=== PATIENT | male | born 1975 | race African-American/Black ===

== ENCOUNTER → 2016-10-26 | Outpatient (CLI) | payer MEDICAID ==
[~2016-10-26] MED LIST: DARVOCET-N 1001 EACH PO; FERROUS SULFAT325 M2 PO; FLEXERIL10 MG PO; FOLIC ACID 1MG T1 MG PO; HYDROCODONE 7.51 TAB PO; HYDROCODONE1 TABLET PO; IBU-8800 MG PO; KEFLEX 500MG.500 MG PO; LEVOTHYROXINE0.05 MG PO; LORTAB 5/500 501 TAB PO; LORTAB 500 MG-71 TAB PO; NOMEDS *; PANTOPRAZOLE SO40 MG PO; PEN-VK500 MG PO; PERCOCET 500 MG1 TAB PO; PREDNISONE20 MG PO; SEPTRA DS 800 M1 TAB PO; SKELAXIN 800MG800 MG PO; SULFAMETHOXAZOL1 TA6 PO; TRAMADOL 50MG T50 MG PO; TYLENOL W/CODEI1 TA1 PO; ULTRAM 50 MG TA50 MG PO; VIBRAMYCIN 100100 MG PO; VICODIN 5/500 T1 TAB PO; VOLTAREN75 MG PO
[2016-10-26 16:19] LABS: HEMOGLOBIN 14.8 g/dL (14.1-18.0); LYMPH # 1.5 K/mm3 (0.7-4.5); LYMPH % 25.9 % (10-50)
[2016-10-26 17:48] LABS: BUN 11 mg/dL (7-18)
[2016-10-26 18:03] LABS: GFR (ESTIMATED) 107 ML/MIN (>60)
[2016-10-28 08:46] LABS: Vitamin D, 25-Hydroxy 24.2 ng/mL (30.0-100.0)
[2016-10-28 09:38] LABS: Folate (Folic Acid) >20.0 ng/mL (>3.0); Vitamin B12 395 pg/mL (211-946)
== END ==
LOC: LAB 16:06
PROVIDERS: Nurse Practitioner Family
DX: R53.83 Other fatigue (principal); D64.9 Anemia, unspecified; E03.9 Hypothyroidism, unspecified

== ENCOUNTER → 2016-11-12 | Outpatient (CLI) | payer MEDICAID ==
[2016-11-12 10:32] LABS: HEMOGLOBIN 15.5 g/dL (14.1-18.0); LYMPH # 2.7 K/mm3 (0.7-4.5); LYMPH % 35.6 % (10-50)
[2016-11-12 11:42] LABS: BUN 5 mg/dL (7-18)
[2016-11-12 11:47] LABS: GFR (ESTIMATED) 93 ML/MIN (>60)
[2016-11-13 08:41] LABS: HBsAg Screen Negative (Negative); Hep A Ab, IgM Negative (Negative); Hep B Core Ab, IgM Negative (Negative); Hep C Virus Ab 0.1 (0.0-0.9)
== END ==
LOC: LAB 10:07
PROVIDERS: Surgery
DX: R10.32 Left lower quadrant pain (principal); D64.9 Anemia, unspecified; K62.5 Hemorrhage of anus and rectum; Z01.812 Encounter for preprocedural laboratory examination

== ENCOUNTER → 2016-12-03 | Outpatient (CLI) | payer MEDICAID | LOC: LAB 15:54 | DX: D64.9 Anemia, unspecified (principal) ==

== ENCOUNTER → 2016-12-10 | Outpatient (CLI) | payer MEDICAID ==
--- NOTE | 2016-12-10 13:28 | RADIOLOGY REPORT PS360 ---
US RUQ-(ABD LTD)1ORGAN/QUAD/FU HISTORY: RUQ PAIN ORDERING PHYSICIAN: JOSE GUADALUPE POST PATIENT AGE: 41 years COMPARISON: None FINDINGS: PANCREAS:Unremarkable. No obvious mass or abnormal fluid collection. No ductal dilatation LIVER:No focal liver lesions demonstrated. Homogeneous echogenicity. No intrahepatic biliary ductal dilatation evident RIGHT KIDNEY:Unremarkable. Normal size and echogenicity. No hydronephrosis GALLBLADDER: Multiple stones and sludge is noted within the gallbladder. No gallbladder wall thickening or common bile duct is normal at 3 mm. No pericholecystic fluid. IMPRESSION: Cholelithiasis with gallbladder sludge
== END ==
LOC: RAD 09:21
DX: R10.11 Right upper quadrant pain (principal)

== ENCOUNTER → 2017-01-17 | Outpatient (CLI) | payer MEDICAID ==
--- NOTE | 2017-01-17 14:53 | RADIOLOGY REPORT PS360 ---
EXAM: CERVICAL SPINE 4 OR 5 VIEWS HISTORY: NECK PAIN ORDERING PHYSICIAN: JOSE GUADALUPE POST PATIENT AGE: 42 years COMPARISON: None FINDINGS: Normal alignment. No fracture or dislocation. No lytic or blastic change. There is slight reversal of cervical lordosis which may be due to patient positioning or muscle spasm. Degenerative disc disease is present at C5-C6 with small endplate osteophytes. Mild right foraminal narrowing at C5-6. IMPRESSION: Degenerative disc disease C5-C6 Straightening of lordosis which may be due to patient positioning or muscle spasm
== END ==
LOC: RAD 10:08
DX: M54.2 Cervicalgia (principal)

== ENCOUNTER 2017-01-28 09:02 | Emergency (ER) | payer MEDICAID ==
[~2017-01-28] VITALS: Ht 172.7 cm; Wt 70.3 kg
--- OUTSIDE RECORDS SUMMARY | 2017-01-28 09:13 | External Medical Summary Rpt | CCD ---
Author Author [employer] Organization [employer] Address Unknown Phone Unavailable Purpose Continuity of Care Document - through 2016
--- OUTSIDE RECORDS SUMMARY | 2017-01-28 09:13 | External Medical Summary Rpt | CCD ---
Demographics Preferred Language Azeri Marital Status Unknown Bahai Affiliation Unknown Race Unknown Ethnic Group Unknown Author Author , ROMY STANTON Address Unknown Phone [email or web address] Immunization Name Date Rout CVX Reac Dose Comm Prov Is Faci e tion ent ider Refu lity Give sed n Td 03-0 9 999 Hist H149 No H149 (joslyn 5-19 oric lt), 97 al Info adso rmat rbed ion - Sour ce Unsp ecif ied
--- OUTSIDE RECORDS SUMMARY | 2017-01-28 09:13 | External Medical Summary Rpt | CCD ---
Demographics Preferred Language Swedish Marital Status Unknown Yarsanism Affiliation Unknown Race Unknown Ethnic Group Unknown Author Author , ROMY STANTON Address Unknown Phone [email or web address] Immunization Name Date Rout CVX Reac Dose Comm Prov Is Faci e tion ent ider Refu lity Give sed n Td 03-0 9 999 Hist H149 No H149 (joslyn 5-19 oric lt), 97 al Info adso rmat rbed ion - Sour ce Unsp ecif ied
--- OUTSIDE RECORDS SUMMARY | 2017-01-28 09:13 | External Medical Summary Rpt | CCD ---
Author Author , ROMY STANTON Address Unknown Phone [email or web address] Purpose Continuity of Care Document - 11-13-2014 through 2016 Problems Code Diagnosis DOS Provider Status Abnormal Labs 820818 Abdominal Pain 517885 Follow-up 511785 Abnormal Lab 46 Fatigue D61.818 Other pancytopeni a D64.9 ANEMIA, UNSPECIFIED D64.9 Anemia, unspecified K29.70 GASTRITIS, UNSPECIFIED , WITHOUT BLEEDING K92.2 GASTROINTES TINAL HEMORRHAGE, UNSPECIFIED N39.0 URINARY TRACT INFECTION, SITE NOT SPECIFIED R10.13 Epigastric pain R63.4 Abnormal weight loss Allergies, Adverse Reactions, Alerts Type Miscellaneous Adverse Reaction to Substance Substance Reaction Severity RASH / HIVES Results Labs Lab Lab Date Result Refere Interp Status Commen Order Detail nces retati t Range on Hepatitis B virus susceptibility panel in Isolate by Genotype method (11-12-2016 10:07) Hepatit Negativ Negativ complet is A 017 e e ed virus 10:07 IgM Ab [Presen ce] in Serum by Immunoa ssay Hepatit Negativ Negativ complet is B 017 e e ed virus 10:07 core IgM Ab [Presen ce] in Serum by Immunoa ssay Hepatit Negativ Negativ complet is B 017 e e ed virus 10:07 surface Ag [Presen ce] in Serum by Immunoa ssay Hemoglobin A1c in Blood (10-26-2016 11:00) Hemoglo 5.1 % 0.0% Normal complet bin A1c 017 - ed in 11:00 7.0% Blood Hemoglobin.gastrointestinal [Presence] in Stool (10-20-2016 10:50) Hemoglo POSITIV NEG complet bin.gas 017 E ed trointe 10:50 stinal [Presen ce] in Stool --1st specime n Drugs identified in Urine by Screen method (10-20-2016 10:35) Ampheta NEGATIV <1000 complet mine 017 E ed [Presen 10:35 ce] in Urine by Screen method 11-Hydr NEGATIV <50 complet oxy 017 E ed delta-9 10:35 tetrahy drocann abinol [Presen ce] in Unspeci fied specime n Treponema pallidum IgG Ab [Presence] in Serum by Immunoassay (09-19-2015 08:00) Trepone NON-MILTON complet ma 016 CTIVE ed pallidu 08:00 m IgG Ab [Presen ce] in Serum by Immunoa ssay Treponema pallidum IgG Ab [Presence] in Serum by Immunoassay (09-19-2015 08:00) COLLECT VM complet OR 016 ed 08:00 ETHNICI B complet TY 016 ed 08:00 PURPOSE ROUTINE complet OF 016 ed EXAM 08:00 SPECIME BLOOD complet N 016 ed SOURCE 08:00 CHART [id number] complet NUMBER 016 ed 08:00 Trepone Pending complet ma 016 ed pallidu 08:00 m IgG Ab [Presen ce] in Serum by Immunoa ssay CHLAMYDIA AND GONORRHEA TESTING (11-13-2014 08:30) Chlamyd POSITIV complet ia 015 E ed trachom 08:30 atis rRNA [Presen ce] in Unspeci fied specime n by Probe & target amplifi cation method Neisser NEGATIV complet ia 015 E ed gonorrh 08:30 oeae rRNA [Presen ce] in Unspeci fied specime n by Probe & target amplifi cation method CHLAMYDIA AND GONORRHEA TESTING (11-13-2014 08:30) COLLECT PATIENT complet OR 015 /[id number] ed 08:30 ETHNICI BLACK, complet TY 015 NON-HIS ed 08:30 PANIC KIT complet EXPIRAT 015 016 ed ION 08:30 DATE SYMPTOM NO complet S 015 ed 08:30 REASON VOLUNTE complet FOR 015 ER/MEDI ed REQUEST 08:30 YARIEL PROBLEM SPECIME URINE complet N 015 ed SOURCE 08:30 PREGNAN NO complet T 015 ed 08:30 CHART NA complet NUMBER 015 ed 08:30 Chlamyd Pending complet ia 015 ed trachom 08:30 atis rRNA [Presen ce] in Unspeci fied specime n by Probe & target amplifi cation method Neisser Pending complet ia 015 ed gonorrh 08:30 oeae rRNA [Presen ce] in Unspeci fied specime n by Probe & target amplifi cation method
--- OUTSIDE RECORDS SUMMARY | 2017-01-28 09:13 | External Medical Summary Rpt | CCD ---
Author Author , ROMY STANTON Address Unknown Phone [email or web address] Purpose Continuity of Care Document - 11-13-2014 through 2016 Problems Code Diagnosis DOS Provider Status Abnormal Labs 285758 Abdominal Pain 057329 Follow-up 641753 Abnormal Lab 46 Fatigue D61.818 Other pancytopeni [...] complet N 016 ed SOURCE 08:00 CHART [id number] complet NUMBER 016 ed 08:00 Trepone Pending [...]
--- NOTE | 2017-01-28 09:15 | Emergency Room Report ---
History of Present Illness Time Seen by MD Knutson Presenting Problem in Triage Pt arrived:Wheelchair Presenting Problem:PT REPORTS PAIN JUST ABOVE UMBILICUS, STATES PAIN HAS BEEN GOING ON FOR 11 MONTHS BUT IS "WAY WORSE" SINCE WAKING UP THIS MORNING. 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 N Clinical Suspician of Infection? N Mental Status: 1 - Regular (Normal Baseline) Sepsis Risk:Low Sepsis Risk Have you (or family members/close friends) recently traveled outside the [place]? N If Yes, where/when: Have you had exposure to infectious disease within the past month? N TB? Other? Specify: RUQ abdominal pain x eleven months, patient of Dr. Arguello, with f/u with GI in [place], [place], scheduled for next week for this chronic syndrome and hx of cholelithiasis. States pain worse w/ food, now with increased pain and diminished appetite today. Moved bowels yesterday, no blood from above or below; no fever or urinary sx; no vomiting; no night sweats; denies liver or pancreatic issues. ALLERGIES Coded Allergies: sulfamethoxazole (From BACTRIM) (I-HIV 10/20/16) trimethoprim (From BACTRIM) (I-[facility] 10/20/16) Home Medications Reported Medications FOLIC ACID (Folic Acid) 1 MG PO DAILY Pantoprazole Sodium (Pantoprazole 40MG) 40 MG PO QHS Levothyroxine Sodium (Levothyroxine) 0.05 MG PO DAILY History Medical History General CAD? No Angina: No DC: No Hypertension? No Hyperlipidemia? No CHF? No DVT? No PE? No COPD? No Asthma? No Anemia? No GERD? No Gastric ulcers? No GI Bleed? No Hernia? No Thyroid Problems? No Hypothyroidism? No CVA? No Seizures? No Diabetes? No Renal Insuffiency? No End Stage Renal Disease? No UTI? No Stones? No BPH? No GB Disease: No Nephritic Syndrome? No Asplenia? No Hepatitis? No Sickle Cell Disease? No Arthritis? No Migraines? No Cataracts? No Glaucoma? No MRSA? Yes HIV? No TB? No Anxiety? No Depression? No Cancer? No Immunization Hx DT/Tetanus 11/15/08 Surgical Hx Previous Surgery?Y CYST REMOVED FROM FACE Social History Smoking Hx Smoker: Current Every Day Smoker Tobacco: Yes Type Cigarettes Packs/day < 1 Pack Alcohol Alcohol: Yes Review of Systems All Other Systems Reviewed and Negative Gastrointestinal see HPI Physical Exam Vital Signs Vital Signs Date Time Temp Pulse Resp B/P Pulse O2 O2 Flow FiO2 Ox Delivery Rate 01/28 1042 65 20 142/93 99 01/28 0936 20 01/28 0905 98.1 63 20 163/111 100 General Appearance normal appearance, WD/WN, no apparent distress Eye Exam - bilateral eye normal exam, bilateral eye PERRL, bilateral eye EOMI Neck normal inspection, non-tender, supple, full range of motion Respiratory Status Yes: trachea midline, chest symmetrical, non tender chest. No: respiratory distress, tender on palpation, use of accessory muscles, pain on inspiration, pain on expiration, productive cough, non productive cough. Lung Sounds bilateral: normal breath sounds, lungs clear. Cardiovascular normal exam, regular rate/rhythm, no peripheral edema, no gallop, no JVD, no murmur, no rub, normal peripheral pulses Gastrointestinal normal bowel sounds, normal exam, soft, no organomegaly, no pulsatile mass, no guarding, no rebound, tenderness (tender RUQ with deep palp) Strength 5 Upper Ext (L), 5 Upper Ext (R), 5 Lower Ext (L), 5 Lower Ext (R) Neurologic alert, normal exam, no motor/sensory deficits, oriented x 3 Glascow Coma Scale Glascow Coma Scale Response Value EYE response: 4 Spontaneously 4 MOTOR response: 6 OBEYS 6 VERBAL response: 5 Oriented & Converses 5 Total 15 Skin intact, normal color, warm/dry Medical Decision Making LABS/Meds/Orders Pt receiving controlled substance in ED? No Results/Orders Laboratory Tests 01/28/17 0921: Sodium 139, Potassium 3.8, Chloride 102, Carbon Dioxide 32, BUN 11, Creatinine 1.0, Estimated Creat Clear 97, Estimated GFR (MDRD) 82, Glucose 105, Calcium 9.3 , Total Bilirubin 0.6, AST 7 L, ALT 19, Alkaline Phosphatase 78, Total Protein 7.5, Albumin 4.1, Globulin 3.4 H, Albumin/Globulin Ratio 1.2, Amylase 62, Lipase 246, WBC 7.4, RBC 4.86, Hgb 15.9, Hct 48.5, MCV 99.8 H, RDW 13.0, Plt Count 204, MPV 9.6, Gran % 54.7, Gran # 4.1, Lymphocytes % 32.3, Monocytes % 9.1 , Eosinophils % 3.0, Basophils % 0.9, Lymphocytes # 2.4, Monocytes # 0.7, Eosinophils # 0.2, Basophils # 0.1, PUBS MCHC 32.7, MCH 32.6 H Current Medication Orders Sig/Anneliese Start time Last Medication Dose Route Stop Time Status Admin Diphenhydramine HCl 12.5 MG ONCE ONE 01/28 945 DC 01/28 IV 01/28 946 0938 Ketorolac 15 MG ONCE ONE 01/28 945 DC 01/28 Tromethamine IV 01/28 946 0936 Diphenhydramine HCl 0 .STK-MED ONE 01/28 935 DC .ROUTE Ketorolac 0 .STK-MED ONE 01/28 935 DC Tromethamine .ROUTE Ondansetron HCl 4 MG ONCE ONE 01/28 930 DC 01/28 IV 01/28 931 0925 Ondansetron HCl 0 .STK-MED ONE 01/28 925 DC .ROUTE Sodium Chloride 10 ML PRN PRN 01/28 915 AC IV 01/29 913 Orders Procedure Date/time Status US GALLBLADDER (ABD LTD) 01/28 921 Active IV SALINE LOCK 01/28 913 Active URINALYSIS/COMPLETE 01/28 913 Active LIPASE 01/28 913 Complete CBC WITH AUTO DIFF 01/28 913 Complete CHEM 12 PROFILE 01/28 913 Complete AMYLASE 01/28 913 Complete XRAY/CT/US XRAY/CT/US US Interpretation by reviewed by me, discussed w/radiologist US results gall bladder stones (nl CBD pos stones per tech) Progress ED Progress Notes 1 Date 01/28/17 Time 0931 Comment Patient states he is NOT allergic to Ibuprofen and NOT allergic to narcotics and has asked these be removed from his allergy list; I have requested that RN do so per this review with patient. He tolerates these medications. ED Progress Notes 2 Date 01/28/17 Time 1047 Comment NO pain at d/c; will f/u closely w/ Dr. Arguello. Departure Departure Time of Disposition 1039 Disposition DC Home or Self Care(routine) Clinical Impression Primary Impression: Cholelithiasis Qualifiers: Cholelithiasis location: gallbladder Cholecystitis presence: without cholecystitis Biliary obstruction: without biliary obstruction Qualified Code: K80.20 - Calculus of gallbladder without cholecystitis without obstruction Condition STABLE Referrals Saundra CARVER,Karson Lombardi MD,Regan Wiggins (Family) Patient Instructions Gallstones Additional Instructions Low fat diet, get in to see Dr. Arguello as soon as possible for reevaluation; keep appointment with GI MD next week. Rx Naproxen, Zofran. Discharge Counseling Counseled pt/family regarding diagnosis, test results, medications/RX, home care, follow up needs Prescriptions Current Visit Scripts NAPROXEN (NAPROXEN 500MG TAB) 500 MG PO BIDP PRN pain #20 TAB Ondansetron (Zofran 4MG Odt) 4 MG PO Q6HP PRN NAUSEA AND VOMITING #6 ODT ED Critical Care Critical Care No at 5910
--- OUTSIDE RECORDS SUMMARY | 2017-01-28 09:15 | External Medical Summary Rpt ---
Author Author [facility] Sandoval, [employer] Organization [facility] Address Unknown Phone Unavailable Results Ferritin [Mass/volume] in Serum or Plasma Observa Value Referen Units Interpr Notes Date tion ce etation Range Ferritin 8 - 388 ng/mL High No Sep 22 [Mass/vol informati 2017 ume] in on in 12:34 PM Serum or source Plasma data Hepatitis B virus susceptibility panel in Isolate by Genotype method Observa Value Referen Units Interpr Notes Date tion ce etation Range Hepatit Negativ Negativ No No No Sep 1 is A e e informa informa informa 2017 virus tion in tion in tion in 10:07 IgM Ab source source source AM [Presen data data data ce] in Serum by Immunoa ssay Hepatit Negativ Negativ No No No Sep 1 is B e e informa informa informa 2017 virus tion in tion in tion in 10:07 core source source source AM IgM Ab data data data [Presen ce] in Serum by Immunoa ssay Hepatitis 0.0 - 0.9 No No INFCE Sep 1 C virus informati informati Result 2017 Ab on in on in Units: 10:07 AM Signal/Cu source source s/co toff data data ratioNega [Ratio] tive: in Serum < or Plasma 0.8Indete by rminate: Immunoass 0.8 - ay 0.9Positi ve: > 0.9The CDC recommend s that a positive HCV antibody resultbe followed up with a HCV Nucleic Acid Amplifica tiontest (574992). Performed at: [address] [id number] Systems Security Analyst: Bryan Bhatti PhD, Phone: [phone] Hepatit Negativ Negativ No No No Sep 1 is B e e informa informa informa 2017 virus tion in tion in tion in 10:07 surface source source source AM Ag data data data [Presen ce] in Serum by Immunoa ssay Amylase [Enzymatic activity/volume] in Serum or Plasma Observa Value Referen Units Interpr Notes Date tion ce etation Range Amylase 25 - 115 U/L Normal No Sep 1 [Enzymati informati 2017 c on in 10:07 AM activity/ source volume] data in Serum or Plasma Comprehensive metabolic 2000 panel in Serum or Plasma Observa Value Referen Units Interpr Notes Date tion ce etation Range Albumin/G 1.1 - 1.8 No Normal No Sep 1 lobulin informati informati 2017 [Mass on in on in 10:07 AM ratio] in source source Serum or data data Plasma Albumin 3.4 - 5.0 gm/dL Normal No Sep 1 [Mass/vol informati 2017 ume] in on in 10:07 AM Serum or source Plasma data Alkaline 46 - 116 U/L Normal No Sep 1 phosphata informati 2017 se on in 10:07 AM [Enzymati source c data activity/ volume] in Serum or Plasma Bilirubin 0.2 - 1.0 mg/dL Normal No Sep 1 .total informati 2017 [Mass/vol on in 10:07 AM ume] in source Serum or data Plasma Urea 7 - 18 mg/dL Low No Sep 1 nitrogen informati 2017 [Mass/vol on in 10:07 AM ume] in source Serum or data Plasma Calcium 8.5 - mg/dL Normal No Sep 1 [Mass/vol 10.1 informati 2017 ume] in on in 10:07 AM Serum or source Plasma data Chloride 98 - 107 mmoL/L Normal No Sep 1 [Moles/vo informati 2017 lume] in on in 10:07 AM Serum or source Plasma data Carbon 21.0 - mmoL/L Normal No Sep 1 dioxide, 32.0 informati 2017 total on in 10:07 AM [Moles/vo source lume] in data Serum or Plasma Creatinin 0.70 - mg/dL Normal No Sep 1 e 1.30 informati 2017 [Mass/vol on in 10:07 AM ume] in source Serum or data Plasma Estimated >60 ML/MIN No REFERENCE Sep 1 informati RANGE: 2017 glomerula on in >60 10:07 AM r source ML/MIN/1. filtratio data 73 SQUARE n rate METERSIf (GF this patient is -A merican, then multiply theresult by 1.210. Globulin 1.3 - 3.2 gm/dL High No Sep 1 [Mass/vol informati 2017 ume] in on in 10:07 AM Serum source data Glucose 74 - 106 mg/dL Normal No Sep 1 [Mass/vol informati 2016 ume] in on in 10:07 AM Serum or source Plasma data Potassium 3.5 - 5.1 mmoL/L Normal No Sep 1 informati 2016 [Moles/vo on in 10:07 AM lume] in source Serum or data Plasma Sodium 136 - 145 mmoL/L Normal No Sep 1 [Moles/vo informati 2017 lume] in on in 10:07 AM Serum or source Plasma data Aspartate 15 - 37 U/L Low No Sep 1 informati 2016 aminotran on in 10:07 AM sferase source [Enzymati data c activity/ volume] in Serum or Plasma Alanine 12 - 78 U/L Normal No Sep 1 aminotran informati 2016 sferase on in 10:07 AM [Enzymati source c data activity/ volume] in Serum or Plasma Protein 6.4 - 8.2 gm/dL Normal No Sep 1 [Mass/vol informati 2016 ume] in on in 10:07 AM Serum or source Plasma data Lipase [Enzymatic activity/volume] in Serum or Plasma Observa Value Referen Units Interpr Notes Date tion ce etation Range Lipase 73 - 393 U/L Normal No Sep 1 [Enzymati informati 2016 c on in 10:07 AM activity/ source volume] data in Serum or Plasma INR in Blood by Coagulation assay Observa Value Referen Units Interpr Notes Date tion ce etation Range INR in 0.9 - 1.1 No Normal INDICATIO Sep 1 Blood by informati N 2017 Coagulati on in 10:07 AM on assay source INR data RANGETHER APY FOR DVT, PE, ATRIAL FIB; 2.0 - 3.0PROPHY LAXIS FOR VTETHERAP Y FOR MECHANICA L HEART 2.5 - 3.5VALVE; PREVENTIO N OF SYSTEMICE MBOLISM SECONDARY TO AMI Prothromb 9.4 - SECONDS Normal No Sep 1 in time 11.8 informati 2017 (PT) in on in 10:07 AM Platelet source poor data plasma by Coagulati on assay CBC W Auto Differential panel in Blood Observa Value Referen Units Interpr Notes Date tion ce etation Range Basophils 0 - 0.2 K/MM3 Normal No Sep 1 informati 2017 [#/volume on in 10:07 AM ] in source Blood by data Automated count Basophils 0.1 - 2.0 % Normal No Sep 1 /100 2016 leukocyte on in 10:07 AM s in source Blood by data Automated count Eosinophi 0.0 - 0.4 K/mm3 Normal No Sep 1 ls inform2016 [#/volume on in 10:07 AM ] in source Blood by data Automated count Eosinophi 0.1 - % Normal No Sep 1 ls/100 12.0 inform2016 leukocyte on in 10:07 AM s in source Blood by data Automated count Granulocy 1.3 - 8.0 K/mm3 Normal No Sep 1 breanna inform2016 [#/volume on in 10:07 AM ] in source Blood by data Automated count Granulocy 37.0 - % Normal No Sep 1 breanna/100 80.0 inform2016 leukocyte on in 10:07 AM s in source Blood by data Automated count Hematocri 42.0 - % Normal No Sep 1 t [Volume 52.0 2016 on in 10:07 AM Fraction] source of Blood data Hemoglobi 14.1 - g/dL Normal No Sep 1 n 18.0 2016 [Mass/vol on in 10:07 AM ume] in source Blood data Lymphocyt 0.7 - 4.5 K/mm3 Normal No Sep 1 es 2016 [#/volume on in 10:07 AM ] in source Unspecifi data ed specimen by Automated count Lymphocyt 10 - 50 % Normal No Sep 1 es 2016 [#/volume on in 10:07 AM ] in source Unspecifi data ed specimen by Automated count Erythrocy 27 - 31.2 pg High No Sep 1 te mean 2016 corpuscul on in 10:07 AM ar source hemoglobi data n [Entitic mass] Erythrocy 31.8 - g/dl Normal No Sep 1 te mean 35.4 inform2016 corpuscul on in 10:07 AM ar source hemoglobi data n concentra tion [Mass/vol ume] by Automated count Erythrocy 82.2 - fl Normal No Sep 1 te mean 97.8 inform2016 corpuscul on in 10:07 AM ar volume source [Entitic data volume] by Automated count Monocytes 0.1 - 1.0 K/mm3 Normal No Sep 1 informati 2017 [#/volume on in 10:07 AM ] in source Blood by data Automated count Monocytes 1.7 - 9.3 % Normal No Sep 1 /100 informati 2017 leukocyte on in 10:07 AM s in source Blood by data Automated count Platelet 7.4 - fl Normal No Sep 1 mean 10.4 informati 2016 volume on in 10:07 AM [Entitic source volume] data in Blood by Automated count Platelets 142 - 424 K/mm3 Normal No Sep 1 informati 2016 [#/volume on in 10:07 AM ] in source Blood data Erythrocy 4.6 - 6.2 M/mm3 Normal No Sep 1 breanna informati 2016 [#/volume on in 10:07 AM ] in source Amniotic data fluid Erythrocy 11.5 - % Normal No Sep 1 te 17.5 informati 2016 distribut on in 10:07 AM ion width source [Entitic data volume] by Automated count Leukocyte 4.8 - K/MM3 Normal No Sep 1 s 10.8 informati 2016 [#/volume on in 10:07 AM ] in source Blood data Comprehensive metabolic 2000 panel in Serum or Plasma Observa Value Referen Units Interpr Notes Date tion ce etation Range Albumin/G 1.1 - 1.8 No Normal No Oct 26 lobulin informati informati 2016 [Mass on in on in 11:00 AM ratio] in source source Serum or data data Plasma Albumin 3.4 - 5.0 gm/dL Normal No Oct 26 [Mass/vol informati 2016 ume] in on in 11:00 AM Serum or source Plasma data Alkaline 46 - 116 U/L Normal No Oct 26 phosphata informati 2016 se on in 11:00 AM [Enzymati source c data activity/ volume] in Serum or Plasma Bilirubin 0.2 - 1.0 mg/dL Normal No Oct 26 .total informati 2016 [Mass/vol on in 11:00 AM ume] in source Serum or data Plasma Urea 7 - 18 mg/dL Normal No Oct 26 nitrogen informati 2016 [Mass/vol on in 11:00 AM ume] in source Serum or data Plasma Calcium 8.5 - mg/dL Normal No Oct 26 [Mass/vol 10.1 informati 2016 ume] in on in 11:00 AM Serum or source Plasma data Chloride 98 - 107 mmoL/L Normal No Oct 26 [Moles/vo informati 2016 lume] in on in 11:00 AM Serum or source Plasma data Carbon 21.0 - mmoL/L Normal No Oct 26 dioxide, 32.0 informati 2016 total on in 11:00 AM [Moles/vo source lume] in data Serum or Plasma Creatinin 0.70 - mg/dL Normal No Oct 26 e 1.30 informati 2017 [Mass/vol on in 11:00 AM ume] in source Serum or data Plasma Estimated >60 ML/MIN No REFERENCE Oct 26 informati RANGE: 2017 glomerula on in >60 11:00 AM r source ML/MIN/1. filtratio data 73 SQUARE n rate METERSIf (GF this patient is -A merican, then multiply theresult by 1.210. Globulin 1.3 - 3.2 gm/dL Normal No Oct 26 [Mass/vol informati 2016 ume] in on in 11:00 AM Serum source data Glucose 74 - 106 mg/dL Normal No Oct 26 [Mass/vol informati 2016 ume] in on in 11:00 AM Serum or source Plasma data Potassium 3.5 - 5.1 mmoL/L Normal No Oct 26 inform2016 [Moles/vo on in 11:00 AM lume] in source Serum or data Plasma Sodium 136 - 145 mmoL/L Normal No Oct 26 [Moles/vo informati 2016 lume] in on in 11:00 AM Serum or source Plasma data Aspartate 15 - 37 U/L Normal No Oct 262016 aminotran on in 11:00 AM sferase source [Enzymati data c activity/ volume] in Serum or Plasma Alanine 12 - 78 U/L Normal No Oct 26 aminotran 2016 sferase on in 11:00 AM [Enzymati source c data activity/ volume] in Serum or Plasma Protein 6.4 - 8.2 gm/dL Normal No Oct 26 [Mass/vol informati 2016 ume] in on in 11:00 AM Serum or source Plasma data Thyroxine (T4) free [Mass/volume] in Serum or Plasma Observa Value Referen Units Interpr Notes Date tion ce etation Range Thyroxine 0.76 - ng/dL Normal No Oct 26 (T4) 1.46 informati 2016 free on in 11:00 AM [Mass/vol source ume] in data Serum or Plasma Lipid 1996 panel in Serum or Plasma Observa Value Referen Units Interpr Notes Date tion ce etation Range Cholester < 200 mg/dL No No Oct 26 ol informati inform2016 [Moles/vo on in on in 11:00 AM lume] in source source Unspecifi data data ed specimen Cholester 40 - 60 MG/DL High No Oct 26 ol in HDL 2016 on in 11:00 AM [Mass/vol source ume] in data Serum or Plasma Cholester 0 - 130 mg/dL Normal No Oct 26 ol in LDL 2016 on in 11:00 AM [Mass/vol source ume] in data Serum or Plasma by calculati on Triglycer 30 - 200 mg/dL Normal No Oct 26 justin 2016 [Moles/vo on in 11:00 AM lume] in source Serum or data Plasma Cholester 0 - 40 No Normal No Oct 26 ol in 2016 VLDL on in on in 11:00 AM [Mass/vol source source ume] in data data Serum or Plasma Thyrotropin [Units/volume] in Serum or Plasma Observa Value Referen Units Interpr Notes Date tion ce etation Range Thyrotrop 0.358 - uIU/ml High No Oct 26 in 3.740 2016 [Units/vo on in 11:00 AM lume] in source Serum or data Plasma Hemoglobin A1c in Blood Observa Value Referen Units Interpr Notes tion ce etation Range Hemoglo 5.1 0.0 - % Normal < 6% Oct 26 bin A1c 7.0 [facility]PRADEEP [facility]00 Blood LEVEL< AM 7% CONTROL LED DIABETI C LEVEL> 8% POORLY CONTROL LED DIABETI C LEVEL CBC W Auto Differential panel in Blood Observa Value Referen Units Interpr Notes Date ti ce etation Range Basophils 0 - 0.2 K/MM3 Normal No Oct 262016 [#/volume on in 11:00 AM ] in source Blood by data Automated count Basophils 0.1 - 2.0 % Normal No Oct 26 /100 2016 leukocyte on in 11:00 AM s in source Blood by data Automated count Eosinophi 0.0 - 0.4 K/mm3 Normal No Oct 26 ls 2016 [#/volume on in 11:00 AM ] in source Blood by data Automated count Eosinophi 0.1 - % Normal No Oct 26 ls/100 12.0 2016 leukocyte on in 11:00 AM s in source Blood by data Automated count Granulocy 1.3 - 8.0 K/mm3 Normal No Oct 15 breanna inform2016 [#/volume on in 11:00 AM ] in source Blood by data Automated count Granulocy 37.0 - % Normal No Oct 15 breanna/100 80.0 inform2016 leukocyte on in 11:00 AM s in source Blood by data Automated count Hematocri 42.0 - % Normal No Oct 26 t [Volume 52.0 ati 2016 on in 11:00 AM Fraction] source of Blood data Hemoglobi 14.1 - g/dL Normal No Oct 26 n 18.0 informati 2016 [Mass/vol on in 11:00 AM ume] in source Blood data Lymphocyt 0.7 - 4.5 K/mm3 Normal No Oct 26 es inform2016 [#/volume on in 11:00 AM ] in source Unspecifi data ed specimen by Automated count Lymphocyt 10 - 50 % Normal No Oct 26 es inform2016 [#/volume on in 11:00 AM ] in source Unspecifi data ed specimen by Automated count Erythrocy 27 - 31.2 pg High No Oct 26 te mean 2016 corpuscul on in 11:00 AM ar source hemoglobi data n [Entitic mass] Erythrocy 31.8 - g/dl Normal No Oct 26 te mean 35.4 inform2016 corpuscul on in 11:00 AM ar source hemoglobi data n concentra tion [Mass/vol ume] by Automated count Erythrocy 82.2 - fl High No Oct 26 te mean 97.8 inform2016 corpuscul on in 11:00 AM ar volume source [Entitic data volume] by Automated count Monocytes 0.1 - 1.0 K/mm3 Normal No Oct 262016 [#/volume on in 11:00 AM ] in source Blood by data Automated count Monocytes 1.7 - 9.3 % Normal No Oct 26 /100 inform2016 leukocyte on in 11:00 AM s in source Blood by data Automated count Platelet 7.4 - fl High No Oct 26 mean 10.4 inform2016 volume on in 11:00 AM [Entitic source volume] data in Blood by Automated count Platelets 142 - 424 K/mm3 Normal No Oct 26 inform2016 [#/volume on in 11:00 AM ] in source Blood data Erythrocy 4.6 - 6.2 M/mm3 Low No Oct 26 breanna informati 2016 [#/volume on in 11:00 AM ] in source Amniotic data fluid Erythrocy 11.5 - % Normal No Oct 26 te 17.5 informati 2016 distribut on in 11:00 AM ion width source [Entitic data volume] by Automated count Leukocyte 4.8 - K/MM3 Normal No Oct 26 s 10.8 informati 2016 [#/volume on in 11:00 AM ] in source Blood data Hemoglobin.gastrointestinal [Presence] in Stool Observa Value Referen Units Interpr Notes Date tion ce etation Range Hemoglo POSITIV NEG No No No Oct 20 bin.gas E informa informa informa 2017 trointe tion in tion in tion in 10:50 stinal source source source AM [Presen data data data ce] in Stool --1st specime n Comprehensive metabolic 2000 panel in Serum or Plasma Observa Value Referen Units Interpr Notes Date tion ce etation Range Albumin/G 1.1 - 1.8 No Normal No Oct 20 lobulin informati informati 2016 [Mass on in on in 10:35 AM ratio] in source source Serum or data data Plasma Albumin 3.4 - 5.0 gm/dL Normal No Oct 20 [Mass/vol informati 2016 ume] in on in 10:35 AM Serum or source Plasma data Alkaline 46 - 116 U/L Normal No Oct 20 phosphata 2016 se on in 10:35 AM [Enzymati source c data activity/ volume] in Serum or Plasma Bilirubin 0.2 - 1.0 mg/dL Normal No Oct 20 .total informati 2016 [Mass/vol on in 10:35 AM ume] in source Serum or data Plasma Urea 7 - 18 mg/dL Normal No Oct 20 nitrogen informati 2016 [Mass/vol on in 10:35 AM ume] in source Serum or data Plasma Calcium 8.5 - mg/dL Normal No Oct 20 [Mass/vol 10.1 informati 2016 ume] in on in 10:35 AM Serum or source Plasma data Chloride 98 - 107 mmoL/L Normal No Oct 20 [Moles/vo informati 2016 lume] in on in 10:35 AM Serum or source Plasma data Carbon 21.0 - mmoL/L Normal No Oct 20 dioxide, 32.0 informati 2016 total on in 10:35 AM [Moles/vo source lume] in data Serum or Plasma Creatinin 0.70 - mg/dL Normal No Oct 20 e 1.30 informati 2016 [Mass/vol on in 10:35 AM ume] in source Serum or data Plasma Creatinin 50 - 200 ML/MIN Normal No Oct 20 e renal ati 2017 clearance on in 10:35 AM source predicted data by Cockcroft -Gault formula Estimated >60 ML/MIN No REFERENCE Oct 20 informati RANGE: 2017 glomerula on in >60 10:35 AM r source ML/MIN/1. filtratio data 73 SQUARE n rate METERSIf (GF this patient is -A merican, then multiply theresult by 1.210. Globulin 1.3 - 3.2 gm/dL High No Oct 20 [Mass/vol informati 2016 ume] in on in 10:35 AM Serum source data Glucose 74 - 106 mg/dL Normal No Oct 20 [Mass/vol informati 2016 ume] in on in 10:35 AM Serum or source Plasma data Potassium 3.5 - 5.1 mmoL/L Normal No Oct 202016 [Moles/vo on in 10:35 AM lume] in source Serum or data Plasma Sodium 136 - 145 mmoL/L Normal No Oct 20 [Moles/vo informati 2016 lume] in on in 10:35 AM Serum or source Plasma data Aspartate 15 - 37 U/L Low No Oct 202016 aminotran on in 10:35 AM sferase source [Enzymati data c activity/ volume] in Serum or Plasma Alanine 12 - 78 U/L Normal No Oct 20 aminotran 2016 sferase on in 10:35 AM [Enzymati source c data activity/ volume] in Serum or Plasma Protein 6.4 - 8.2 gm/dL Normal No Oct 20 [Mass/vol informati 2016 ume] in on in 10:35 AM Serum or source Plasma data Drugs identified in Urine by Screen method Observa Value Referen Units Interpr Notes Date tion ce etation Range Positive urine drug screen samples are stored for 7 days. Contact the Lab if confirmation of positives is needed. Ampheta NEGATIV <1000 ng/mL No No Oct 20 mine E informa informa 2016 [Presen tion in tion in 10:35 ce] in source source AM Urine data data by Screen method Barbitura <200 ng/mL No No Oct 20 breanna informati informati 2016 [Mass/vol on in on in 10:35 AM ume] in source source Urine by data data Screen method Benzodiaz 200 ng/mL ng/mL No No Oct 20 epines informati ati 2016 [Mass/vol on in on in 10:35 AM ume] in source source Serum or data data Plasma by Screen method Cocaine <300 ng/g No No Oct 20 [Mass/vol informati informati 2016 ume] in on in on in 10:35 AM Unspecifi source source ed data data specimen Methadone <300 ng/mL No No Oct 20 informati informati 2016 [Mass/vol on in on in 10:35 AM ume] in source source Unspecifi data data ed specimen Opiates <300 ng/mL No No Oct 20 [Mass/vol informati informati 2016 ume] in on in on in 10:35 AM Unspecifi source source ed data data specimen Phencycli <25 ng/mL No No Oct 20 dine ati ati 2016 [Mass/vol on in on in 10:35 AM ume] in source source Unspecifi data data ed specimen 11-Hydr NEGATIV <50 ng/mL No No Oct 20 oxy E informa informa 2017 delta-9 tion in tion in 10:35 source source AM tetrahy data data drocann abinol [Presen ce] in Unspeci fied specime n CBC W Auto Differential panel in Blood Observa Value Referen Units Interpr Notes Date tion ce etation Range Basophils 0 - 0.2 K/MM3 Normal No Oct 202016 [#/volume on in 10:35 AM ] in source Blood by data Automated count Basophils 0.1 - 2.0 % Normal No Oct 202016 leukocyte on in 10:35 AM s in source Blood by data Automated count Eosinophi 0.0 - 0.4 K/mm3 Normal No Oct 20 ls ati 2016 [#/volume on in 10:35 AM ] in source Blood by data Automated count Eosinophi 0.1 - % Normal No Oct 20 ls/100 12.0 2016 leukocyte on in 10:35 AM s in source Blood by data Automated count Granulocy 1.3 - 8.0 K/mm3 Normal No Oct 20 breanna informati 2016 [#/volume on in 10:35 AM ] in source Blood by data Automated count Granulocy 37.0 - % Normal No Oct 20 breanna/100 80.0 2016 leukocyte on in 10:35 AM s in source Blood by data Automated count Hematocri 42.0 - % Normal No Oct 20 t [Volume 52.0 2016 on in 10:35 AM Fraction] source of Blood data Hemoglobi 14.1 - g/dL Normal No Oct 20 n 18.0 inform2016 [Mass/vol on in 10:35 AM ume] in source Blood data Lymphocyt 0.7 - 4.5 K/mm3 Normal No Oct 20 es inform2016 [#/volume on in 10:35 AM ] in source Unspecifi data ed specimen by Automated count Lymphocyt 10 - 50 % Normal No Oct 20 es 2016 [#/volume on in 10:35 AM ] in source Unspecifi data ed specimen by Automated count Erythrocy 27 - 31.2 pg High No Oct 20 te mean 2016 corpuscul on in 10:35 AM ar source hemoglobi data n [Entitic mass] Erythrocy 31.8 - g/dl Normal No Oct 20 te mean 35.4 2016 corpuscul on in 10:35 AM ar source hemoglobi data n concentra tion [Mass/vol ume] by Automated count Erythrocy 82.2 - fl High No Oct 20 te mean 97.8 inform2016 corpuscul on in 10:35 AM ar volume source [Entitic data volume] by Automated count Monocytes 0.1 - 1.0 K/mm3 Normal No Oct 202016 [#/volume on in 10:35 AM ] in source Blood by data Automated count Monocytes 1.7 - 9.3 % Normal No Oct 20 / inform2016 leukocyte on in 10:35 AM s in source Blood by data Automated count Platelet 7.4 - fl Normal No Oct 20 mean 10.4 2016 volume on in 10:35 AM [Entitic source volume] data in Blood by Automated count Platelets 142 - 424 K/mm3 No No Oct 20 informati informati 2016 [#/volume on in on in 10:35 AM ] in source source Blood data data Erythrocy 4.6 - 6.2 M/mm3 Low No Oct 20 breanna 2016 [#/volume on in 10:35 AM ] in source Amniotic data fluid Erythrocy 11.5 - % Normal No Oct 20 te 17.5 2016 distribut on in 10:35 AM ion width source [Entitic data volume] by Automated count Leukocyte 4.8 - K/MM3 Normal No Oct 20 s 10.8 inform2016 [#/volume on in 10:35 AM ] in source Blood data Treponema pallidum IgG Ab [Presence] in Serum by Immunoassay Observa Value Referen Units Interpr Notes Date tion ce etation Range COLLECT VM No No No No Sep 18 OR informa informa informa informa 2016 tion in tion in tion in tion in 8:00 AM source source source source data data data data ETHNICI B No No No No Sep 18 TY informa informa informa informa 2016 tion in tion in tion in tion in 8:00 AM source source source source data data data data PURPOSE ROUTINE No No No No Sep 18 OF informa informa informa informa 2016 EXAM tion in tion in tion in tion in 8:00 AM source source source source data data data data SPECIME BLOOD No No No No Sep 18 N informa informa informa informa 2016 SOURCE tion in tion in tion in tion in 8:00 AM source source source source data data data data CHART [id number] No No No No Sep 18 NUMBER informa informa informa informa 2016 tion in tion in tion in tion in 8:00 AM source source source source data data data data Trepone NON-MILTON No No No METHOD Sep [address] informa informa informa OF 2016 pallidu tion in tion in tion in ANALYSI 8:00 AM m IgG source source source S: Ab data data data EIANORM [Presen AL ce] in RANGE: Serum NON-MILTON by CTIVE\. Immunoa br\This ssay report contain s patient informa tion that must be protect ed in accorda nce with the Health Insuran ce Portabi lity and Account ability Act. Treponema pallidum IgG Ab [Presence] in Serum by Immunoassay Observa Value Referen Units Interpr Notes Date tion ce etation Range COLLECT VM No No No No Sep 18 OR informa informa informa informa 2016 tion in tion in tion in tion in 8:00 AM source source source source data data data data ETHNICI B No No No No Sep 18 TY informa informa informa informa 2016 tion in tion in tion in tion in 8:00 AM source source source source data data data data PURPOSE ROUTINE No No No No Sep 18 OF informa informa informa informa 2016 EXAM tion in tion in tion in tion in 8:00 AM source source source source data data data data SPECIME BLOOD No No No No Sep 18 N informa informa informa informa 2016 SOURCE tion in tion in tion in tion in 8:00 AM source source source source data data data data CHART [id number] No No No No Sep 18 NUMBER informa informa informa informa 2016 tion in tion in tion in tion in 8:00 AM source source source source data data data data Trepone Pending No No No \.br\Sep 18 ma informa informa informa is 2016 pallidu tion in tion in tion in report 8:00 AM m IgG source source source contain Ab data data data s [Presen patient ce] in Serum informa by tion Immunoa that ssay must be protect ed in accorda nce with the Health Insuran ce Portabi lity and Account ability Act. CHLAMYDIA AND GONORRHEA TESTING Observa Value Referen Units Interpr Notes Date tion ce etation Range COLLECT PATIENT No No No No Sep 2 OR /[id number] informa informa informa informa 2015 tion in tion in tion in tion in 8:30 AM source source source source data data data data ETHNICI BLACK, No No No No Sep 2 TY NON-HIS informa informa informa informa 2015 PANIC tion in tion in tion in tion in 8:30 AM source source source source data data data data KIT -31-2 No No No No Sep 2 EXPIRAT 016 informa informa informa informa 2015 ION tion in tion in tion in tion in 8:30 AM DATE source source source source data data data data SYMPTOM NO No No No No Sep 2 S informa informa informa informa 2015 tion in tion in tion in tion in 8:30 AM source source source source data data data data REASON VOLUNTE No No No No Sep 2 FOR ER/MEDI informa informa informa informa 2015 REQUEST YARIEL tion in tion in tion in tion in 8:30 AM PROBLEM source source source source data data data data SPECIME URINE No No No No Sep 2 N informa informa informa informa 2015 SOURCE tion in tion in tion in tion in 8:30 AM source source source source data data data data PREGNAN NO No No No No Sep 2 T informa informa informa informa 2015 tion in tion in tion in tion in 8:30 AM source source source source data data data data CHART NA No No No No Sep 2 NUMBER informa informa informa informa 2015 tion in tion in tion in tion in 8:30 AM source source source source data data data data Chlamyd POSITIV No No No NEGATIV Sep 2 ia E informa informa informa E 2015 trachom tion in tion in tion in RESULT= 8:30 AM atis source source source WITHIN rRNA data data data NORMAL [Presen ce] in LIMITSP Unspeci OSITIVE fied specime RESULT= n by Probe & ABNORMA target LEQUIVO YARIEL amplifi RESULT= cation method INDETER MINATEU NSATISF ACTORY RESULT= INVALID Neisser NEGATIV No No No NEGATIV Sep 2 ia E informa informa informa E 2015 gonorrh tion in tion in tion in RESULT= 8:30 AM oeae source source source WITHIN rRNA data data data NORMAL [Presen ce] in LIMITSP Unspeci OSITIVE fied specime RESULT= n by Probe & ABNORMA target LEQUIVO YARIEL amplifi RESULT= cation method INDETER MINATEU NSATISF ACTORY RESULT= INVALID THE APTIMA COMBO 2 ASSAY IS NOT INTENDE D FOR THE EVALUAT ION OF SUSPECT EDSEXUA L ABUSE OR FOR OTHER MEDICO- LEGAL INDICAT IONS. FOR THOSE PATIENT S FORWHOM A FALSE POSITIV E RESULT MAY HAVE ADVERSE PSYCHO- SOCIAL IMPACT, THE CDCRECO MMENDS RETESTI NG.\.br \This report contain s patient informa tion that must be protect ed in accorda nce with the Health Insuran ce Portabi lity and Account ability Act. CHLAMYDIA AND GONORRHEA TESTING Observa Value Referen Units Interpr Notes Date tion ce etation Range COLLECT PATIENT No No No No Sep 2 OR /[id number] informa informa informa informa 2015 tion in tion in tion in tion in 8:30 AM source source source source data data data data ETHNICI BLACK, No No No No Sep 2 TY NON-HIS informa informa informa informa 2015 PANIC tion in tion in tion in tion in 8:30 AM source source source source data data data data KIT 01-31-2 No No No No Sep 2 EXPIRAT 016 informa informa informa informa 2015 ION tion in tion in tion in tion in 8:30 AM DATE source source source source data data data data SYMPTOM NO No No No No Sep 2 S informa informa informa informa 2015 tion in tion in tion in tion in 8:30 AM source source source source data data data data REASON VOLUNTE No No No No Sep 2 FOR ER/MEDI informa informa informa informa 2015 REQUEST YARIEL tion in tion in tion in tion in 8:30 AM PROBLEM source source source source data data data data SPECIME URINE No No No No Sep 2 N informa informa informa informa 2015 SOURCE tion in tion in tion in tion in 8:30 AM source source source source data data data data PREGNAN NO No No No No Sep 2 T informa informa informa informa 2015 tion in tion in tion in tion in 8:30 AM source source source source data data data data CHART NA No No No No Sep 2 NUMBER informa informa informa informa 2015 tion in tion in tion in tion in 8:30 AM source source source source data data data data Chlamyd Pending No No No No Sep 2 ia informa informa informa informa 2015 trachom tion in tion in tion in tion in 8:30 AM atis source source source source rRNA data data data data [Presen ce] in Unspeci fied specime n by Probe & target amplifi cation method Neisser Pending No No No \.br\ Sep 2 ia informa informa informa is 2015 gonorrh tion in tion in tion in report 8:30 AM oeae source source source contain rRNA data data data s [Presen patient ce] in Unspeci informa fied tion specime that n by must be Probe & target protect ed in amplifi accorda cation nce method with the Health Insuran ce Portabi lity and Account ability Act.
--- OUTSIDE RECORDS SUMMARY | 2017-01-28 09:15 | External Medical Summary Rpt ---
[...] with a HCV Nucleic Acid Amplifica tiontest ([id number]). Performed at: [address] [id number] Income Tax Consultant: Bryan Bhatti PhD, Phone: [phone] Hepatit Negativ Negativ No No No [...] 26 bin A1c 7.0 [facility]ADEEP 2017 [facility]00 Blood LEVEL< AM 7% CONTROL [...] source source data data data data CHART [id number] No No No No Sep 18 NUMBER informa informa informa informa 2016 tion in tion in tion in tion in 8:00 AM source source source source data data data data Trepone NON-MITLON No No No METHOD Sep 18 ma [...] source source data data data data CHART [id number] No No No No Sep 18 NUMBER [...]
[2017-01-28 09:29] LABS: HEMOGLOBIN 15.9 g/dL (14.1-18.0); LYMPH # 2.4 K/mm3 (0.7-4.5); LYMPH % 32.3 % (10-50)
[2017-01-28] MEDS ORDERED: ZOFRAN ODT4 MG PO (10:44)
[2017-01-28] MEDS ORDERED: NAPROXEN SODIU500 MG PO (10:44)
[2017-01-28 10:58] VITALS: BP 143/89
--- NOTE | 2017-01-28 15:38 | RADIOLOGY REPORT PS360 ---
US GALLBLADDER (ABD LTD) HISTORY: RUQ abdominal pain, worse this AM known gallstones with abdominal pain Patient Age: 42 years: Male Ordering Physician: Prerna Emerson MD TECHNIQUE: Ultrasound right upper quadrant COMPARISON :Previous ultrasound right upper quadrant 12/10/2016 FINDINGS Pancreas.. No significant findings Visualized Head body and medial tail of pancreas unremarkable LIVER no focal lesions no bili ductal dilatation. Portal vein unremarkable Right kidney normal. Right kidney. Normal size 9.7 cm length. No hydronephrosis nor mass.. Gallbladder. Sludge and small stones in likely gravel-like material along the dependent portion of gallbladder. The very focal discrete stones not as evident as a were on the previous ultrasound study, rather there appear to be numerous tiny nonshadowing stones within the sludge along the dependent gallbladder.. Gallbladder is mildly distended 10 cm length. No gallbladder wall thickening. Gallbladder wall normal to upper normal thickness in some regions. No GB distention. Septation noted towards neck of gallbladder. . Common duct appears normal measuring 3 mm at hilum of liver. IMPRESSION: 1. Cholelithiasis again noted. Gallbladder mildly distended 10 cm length Sludge with tiny stones & likely gravel along dependent gallbladder.Note comments in text.. No additional inflammatory changes. No significant wall thickening 2. Common duct normal. Liver, right kidney, pancreas unremarkable
[2017-01-28] MEDS ORDERED: COLACE100 MG PO (16:16)
[2017-01-28] MEDS ORDERED: HYDROCODONE/APA1 TA8 PO (16:16)
== END 2017-01-28 10:58 | disposition home or self-care (01) ==
LOC: ER 09:02
PROVIDERS: Emergency Medicine
DX: K80.20 Calculus of gallbladder without cholecystitis without obstruction (principal); F17.210 Nicotine dependence, cigarettes, uncomplicated; Z88.2 Allergy status to sulfonamides
CPT/HCPCS: J2405

== ENCOUNTER 2017-01-28 12:54 | Emergency (ER) | payer MEDICAID ==
[~2017-01-28] VITALS: Ht 172.7 cm; Wt 70.3 kg
[~2017-01-28 12:54] MED LIST changes: +NAPROXEN SODIU500 MG PO; +ZOFRAN ODT4 MG PO
--- NOTE | 2017-01-28 13:04 | Emergency Room Report ---
History of Present Illness Time Seen by 1255 Presenting Problem in Triage Pt arrived:Walked Presenting Problem:PT C/O PAIN JUST ABOVE UMBILICUS AREA. PT REPORTS PAIN IS WORSE THAN IN ER EARLIER TODAY. 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 N Clinical Suspician of Infection? N Mental Status: 1 - Regular (Normal Baseline) Sepsis Risk:Low Sepsis Risk Have you (or family members/close friends) recently traveled outside the [place]? N If Yes, where/when: Have you had exposure to infectious disease within the past month? N TB? Other? Specify: RUQ abdominal pain, seen in ED and discharged a few hours ago with RUQ US showing gallstones with nl CBD per tech report; labs normal. Positive relief with Toradol in ED. Pain has since returned and feels worse. Still in RUQ. No vomiting. No fever. Has not had anything to eat today. Has been seen by Dr. Arguello in the last few weeks with hx of known cholelithiasis and referral to GI. ALLERGIES Coded Allergies: sulfamethoxazole (From BACTRIM) (I-HIVES 10/20/16) trimethoprim (From BACTRIM) (I-HIVES 10/20/16) Home Medications Active Scripts NAPROXEN (NAPROXEN 500MG TAB) 500 MG PO BIDP PRN pain #20 TAB Prov: 01/28/17 Ondansetron (Zofran 4MG Odt) 4 MG PO Q6HP PRN NAUSEA AND VOMITING #6 ODT Prov: 01/28/17 Reported Medications FOLIC ACID (Folic Acid) 1 MG PO DAILY Pantoprazole Sodium (Pantoprazole 40MG) 40 MG PO QHS Levothyroxine Sodium (Levothyroxine) 0.05 MG PO DAILY History Medical History General CAD? No Angina: No DC: No Hypertension? No Hyperlipidemia? No CHF? No DVT? No PE? No COPD? No Asthma? No Anemia? No GERD? No Gastric ulcers? No GI Bleed? No Hernia? No Thyroid Problems? Yes Hypothyroidism? Yes CVA? No Seizures? No Diabetes? No Renal Insuffiency? No End Stage Renal Disease? No UTI? No Stones? No BPH? No GB Disease: No Nephritic Syndrome? No Asplenia? No Hepatitis? No Sickle Cell Disease? No Arthritis? No Migraines? No Cataracts? No Glaucoma? No MRSA? Yes HIV? No TB? No Anxiety? No Depression? No Cancer? No Immunization Hx DT/Tetanus 11/15/08 Surgical Hx Previous Surgery?Y CYST REMOVED FROM FACE Social History Smoking Hx Packs/day < 1 Pack Alcohol Alcohol: Yes Review of Systems All Other Systems Reviewed and Negative Gastrointestinal see HPI Physical Exam Vital Signs Vital Signs Date Time Temp Pulse Resp B/P Pulse O2 O2 Flow FiO2 Ox Delivery Rate 01/28 1427 66 16 135/84 100 01/28 1426 18 01/28 1310 20 01/28 1259 97.8 67 20 155/92 99 General Appearance normal appearance, WD/WN, mild distress Eye Exam - bilateral eye normal exam, bilateral eye PERRL, bilateral eye EOMI Neck normal inspection, non-tender, supple, full range of motion Respiratory Status Yes: trachea midline, chest symmetrical. No: respiratory distress, tender on palpation, use of accessory muscles, pain on inspiration, pain on expiration, productive cough. Lung Sounds bilateral: normal breath sounds, lungs clear. Cardiovascular normal exam, regular rate/rhythm, no peripheral edema, no gallop, no JVD, no murmur, no rub, normal peripheral pulses Gastrointestinal normal bowel sounds, soft, no organomegaly, no pulsatile mass, no guarding, no rebound (tenderness over RUQ) Strength 5 Upper Ext (L), 5 Upper Ext (R), 5 Lower Ext (L), 5 Lower Ext (R) Neurologic alert, normal exam, no motor/sensory deficits, oriented x 3 ( ambulatory) Glascow Coma Scale Glascow Coma Scale Response Value EYE response: 4 Spontaneously 4 MOTOR response: 6 OBEYS 6 VERBAL response: 5 Oriented & Converses 5 Total 15 Skin intact, normal color, warm/dry Medical Decision Making LABS/Meds/Orders Pt receiving controlled substance in ED? Yes Ghanshyam was queried for this patient? Yes Reference #: [id number] Results/Orders Current Medication Orders Sig/Anneliese Start time Last Medication Dose Route Stop Time Status Admin Iopamidol 75 ML ONCE ONE 01/28 1530 DC 01/28 IV 01/28 1531 1524 Sodium Chloride 10 ML ONCE ONE 01/28 1530 DC 01/28 IV 01/28 1531 1524 Morphine Sulfate 0 .STK-MED ONE 01/28 1420 DC .ROUTE Morphine Sulfate 4 MG ONCE ONE 01/28 1415 DC 01/28 IV 01/28 1416 1426 Diatrizoate Meglum/ 30 ML ONCE ONE 01/28 1330 DC 01/28 Diatrizoate Sod PO 01/28 1331 1329 Diatrizoate Meglum/ 0 .STK-MED ONE 01/28 1322 DC Diatrizoate Sod .ROUTE Morphine Sulfate 4 MG ONCE ONE 01/28 1315 DC 01/28 IM 01/28 1316 1310 Ondansetron HCl 4 MG ONCE ONE 01/28 1315 DC 01/28 PO 01/28 1316 1309 Sodium Chloride 10 ML PRN PRN 01/28 1315 AC IV 01/29 1313 Morphine Sulfate 0 .STK-MED ONE 01/28 1308 DC .ROUTE Ondansetron HCl 0 .STK-MED ONE 01/28 1308 DC .ROUTE Orders Procedure Date/time Status DIET-NOTHING BY MOUTH 01/28 D Active IV SALINE LOCK 01/[address] ABD/PELVIS REQ 01/28 1313 Complete XRAY/CT/US XRAY/CT/US CT abdomen, pelvis Time results known: 1608 CT Results abnormal, gall bladder distended 10 mc; pos gallstones; correlates w/ US from prior ED visit this AM. also constipated. Consult MD Physician Consult 1 Consult/PCP Drs. Love and Saundra requesting CT Time Called 1301 Reason Pt. Condition, Surgical eval/care Physician Consult 2 Consult/PCP d/w Dr. Love cert occupational therapy asst for surgery. Not an emergent condition; Colace;Lortab. Time Called 1608 Reason Pt. Condition, Surgical eval/care Progress ED Progress Notes Date 01/28/17 Time 1318 Comment Feeling better s/p Morphine Sulfate injection. Departure Departure Time of Disposition 1613 Disposition DC Home or Self Care(routine) Clinical Impression Primary Impression: Cholelithiasis Qualifiers: Cholelithiasis location: gallbladder Cholecystitis presence: without cholecystitis Biliary obstruction: without biliary obstruction Qualified Code: K80.20 - Calculus of gallbladder without cholecystitis without obstruction Condition STABLE Referrals Karson Arguello MD Patient Instructions Constipation, Gallstones Additional Instructions Recommend Colace, bland diet, low fat, Rx Lortab ( take sparingly due to constipation side effect); very close follow up with Dr. Arguello on January 31, 2017, call for clinic appointment. Discharge Counseling Counseled pt/family regarding diagnosis, test results, R/B of controlled subst., medications/RX, home care, follow up needs Prescriptions Current Visit Scripts HYDROCODONE/ACETAMINOPHEN (LORTAB 5-325 (generic)) 1 TAB PO Q6HP PRN PAIN #10 TAB Docusate Sodium (Colace 100MG CAP) 100 MG PO Q12 #10 CAP ED Critical Care Critical Care No at 1621
--- OUTSIDE RECORDS SUMMARY | 2017-01-28 13:08 | External Medical Summary Rpt | CCD ---
Author Author , ROMY STANTON Address Unknown Phone [email or web address] Purpose Continuity of Care Document - 11-13-2014 through 2016 Problems Code Diagnosis DOS Provider Status Abnormal Labs 378374 Abdominal Pain 926052 Follow-up 304370 Abnormal Lab 46 Fatigue D61.818 Other pancytopeni [...] Order Detail nces retati t Range on CBC w auto diff (01-28-2017 09:21) Automat = 0.1 0-0.2 complet ed 017 K/MM3 ed blood 09:21 basophi l count (count/ vo Baso % = 0.9 % 0.1-2.0 complet 017 ed 09:21 Automat = 0.2 0.0-0.4 complet ed 017 K/mm3 ed blood 09:21 eosinop hil count Automat = 3.0 % 0.1-12. complet ed 017 0 ed blood 09:21 eosinop hils/10 0 leukocy t Blood = 4.1 1.3-8.0 complet granulo 017 K/mm3 ed cytes 09:21 automat ed count (numb Granulo = 54.7 37.0-80 complet cyte 017 % .0 ed percent 09:21 age Blood = 48.5 42.0-52 complet hematoc 017 % .0 ed rit 09:21 (volume fractio n) Blood = 15.9 14.1-18 complet hemoglo 017 g/dL .0 ed bin 09:21 measure ment (mass/v olum Absolut = 2.4 0.7-4.5 complet e 017 K/mm3 ed lymphoc 09:21 yte count Lymphoc = 32.3 10-50 complet yte 017 % ed count, 09:21 blood, automat ed Mean = 32.6 27-31.2 complet corpusc 017 pg ed ular 09:21 hemoglo bin (MCH) determ Automat = 32.7 31.8-35 complet ed 017 g/dl .4 ed erythro 09:21 cyte mean corpusc ular h Automat = 99.8 82.2-97 complet ed 017 fl .8 ed erythro 09:21 cyte mean corpusc ular v Absolut = 0.7 0.1-1.0 complet e 017 K/mm3 ed monocyt 09:21 e count [place] % = 9.1 % 1.7-9.3 complet 017 ed 09:21 Automat = 9.6 7.4-10. complet ed 017 fl 4 ed blood 09:21 platele t mean volume kylee Blood = 204 142-424 complet platele 017 K/mm3 ed t count 09:21 Red = 4.86 4.6-6.2 complet blood 017 M/mm3 ed cell 09:21 count Automat = 13.0 11.5-17 complet ed 017 % .5 ed erythro 09:21 cyte distrib ution width Blood = 7.4 4.8-10. complet leukocy 017 K/MM3 8 ed breanna 09:21 count (number /volume ) Amylase ser/plas (01-28-2017 09:21) Amylase = 62 25-115 complet 017 U/L ed ser/naomi 09:21 s Comprehensive metabolic panel (01-28-2017 09:21) Serum = 1.2 1.1-1.8 complet or 017 ed plasma 09:21 albumin /globul in mass ra Serum = 4.1 3.4-5.0 complet or 017 gm/dL ed plasma 09:21 albumin measure ment (mas Serum = 78 46-116 complet or 017 U/L ed plasma 09:21 alkalin e phospha tase kylee Serum = 0.6 0.2-1.0 complet or 017 mg/dL ed plasma 09:21 total bilirub in measure m Serum = 11 7-18 complet or 017 mg/dL ed plasma 09:21 urea nitroge n measure men Serum = 9.3 8.5-10. complet or 017 mg/dL 1 ed plasma 09:21 calcium measure ment (mas Serum = 102 98-107 complet or 017 mmoL/L ed plasma 09:21 chlorid e measure ment (mo Carbon = 32 21.0-32 complet dioxide 017 mmoL/L .0 ed 09:21 measure ment Serum = 1.0 0.70-1. complet or 017 mg/dL 30 ed plasma 09:21 creatin ine measure ment ( Estimat = 97 50-200 complet ion of 017 ML/MIN ed creatin 09:21 ine renal clearan ce Estimat = 82 >60 complet ed 017 ML/MIN ed glomeru 09:21 lar filtrat ion rate (GF Comment: REFERENCE RANGE: >60 ML/MIN/1.73 SQUARE METERS Comment: If this patient is -Qatari, then multiply the Comment: result by 1.210. Serum = 3.4 1.3-3.2 complet globuli 017 gm/dL ed n 09:21 measure ment (mass/v olume) Serum = 105 74-106 complet or 017 mg/dL ed plasma 09:21 glucose measure ment (mas Serum = 3.8 3.5-5.1 complet potassi 017 mmoL/L ed um 09:21 measure ment Serum = 139 136-145 complet sodium 017 mmoL/L ed measure 09:21 ment Serum = 7 U/L 15-37 complet or 017 ed plasma 09:21 asparta te aminotr ansfera ALT = 19 12-78 complet (SGPT) 017 U/L ed ser/naomi 09:21 s Protein = 7.5 6.4-8.2 complet total 017 gm/dL ed ser/naomi 09:21 s Lipase measurement (01-28-2017 09:21) Lipase = 246 73-393 complet measure 017 U/L ed ment 09:21 Hepatitis B virus susceptibility panel in Isolate [...] 10:35 ce] in Urine by Screen method NEGATIV <50 complet oxy 017 E ed [...] complet N 016 ed SOURCE 08:00 CHART [id number] complet NUMBER 016 ed 08:00 Trepone Pending [...] TY 015 NON-HIS ed 08:30 PANIC KIT 2 complet EXPIRAT 015 016 ed ION 08:30 [...]
--- OUTSIDE RECORDS SUMMARY | 2017-01-28 13:08 | External Medical Summary Rpt | CCD ---
Demographics Preferred Language Japanese Marital Status Unknown Amish Affiliation Unknown Race Unknown Ethnic Group Unknown Author Author , ROMY STANTON Address Unknown Phone [email or web address] Immunization Name Date Rout CVX Reac Dose Comm Prov Is Faci e tion ent ider Refu lity Give sed n Td 03-0 9 999 Hist H149 No H149 (joslyn 5-19 oric lt), 97 al Info adso rmat rbed ion - Sour ce Unsp ecif ied
--- OUTSIDE RECORDS SUMMARY | 2017-01-28 13:08 | External Medical Summary Rpt | CCD ---
Demographics Preferred Language Latvian Marital Status Unknown Church Affiliation Unknown Race Unknown Ethnic Group Unknown Author Author , ROMY STANTON Address Unknown Phone [email or web address] Immunization Name Date Rout CVX Reac Dose Comm Prov Is Faci e tion ent ider Refu lity Give sed n Td 03-0 9 999 Hist H149 No H149 (joslyn 5-19 oric lt), 97 al Info adso rmat rbed ion - Sour ce Unsp ecif ied
--- OUTSIDE RECORDS SUMMARY | 2017-01-28 13:08 | External Medical Summary Rpt | CCD ---
Author Author , ROMY STANTON Address Unknown Phone [email or web address] Purpose Continuity of Care Document - 11-13-2014 through 2016 Problems Code Diagnosis DOS Provider Status Abnormal Labs 230452 Abdominal Pain 855618 Follow-up 793747 Abnormal Lab 46 Fatigue D61.818 Other pancytopeni [...] 017 K/mm3 ed monocyt 09:21 e count [place] % = 9.1 % 1.7-9.3 complet 017 [...] SQUARE METERS Comment: If this patient is -Ugandan, then multiply the Comment: result by 1.210. [...] complet N 016 ed SOURCE 08:00 CHART [id number] complet NUMBER 016 ed 08:00 Trepone Pending [...]
--- OUTSIDE RECORDS SUMMARY | 2017-01-28 13:10 | External Medical Summary Rpt ---
Author Author [facility] Jaime, [employer] Organization [employer] Address Unknown Phone Unavailable Results Amylase [Enzymatic activity/volume] in Serum or Plasma Observa Value Referen Units Interpr Notes Date tion ce etation Range Amylase 25 - 115 U/L Normal No Jan 28 [Enzymati informati 2017 9:21 c on in AM activity/ source volume] data in Serum or Plasma Comprehensive metabolic 2000 panel in Serum or Plasma Observa Value Referen Units Interpr Notes Date tion ce etation Range Albumin/G 1.1 - 1.8 No Normal No Jan 28 lobulin informati informati 2016 9:21 [Mass on in on in AM ratio] in source source Serum or data data Plasma Albumin 3.4 - 5.0 gm/dL Normal No Jan 28 [Mass/vol informati 2016 9:21 ume] in on in AM Serum or source Plasma data Alkaline 46 - 116 U/L Normal No Jan 28 phosphata informati 2016 9:21 se on in AM [Enzymati source c data activity/ volume] in Serum or Plasma Bilirubin 0.2 - 1.0 mg/dL Normal No Jan 28 .total informati 2016 9:21 [Mass/vol on in AM ume] in source Serum or data Plasma Urea 7 - 18 mg/dL Normal No Jan 28 nitrogen informati 2016 9:21 [Mass/vol on in AM ume] in source Serum or data Plasma Calcium 8.5 - mg/dL Normal No Jan 28 [Mass/vol 10.1 informati 2016 9:21 ume] in on in AM Serum or source Plasma data Chloride 98 - 107 mmoL/L Normal No Jan 28 [Moles/vo informati 2016 9:21 lume] in on in AM Serum or source Plasma data Carbon 21.0 - mmoL/L Normal No Jan 28 dioxide, 32.0 informati 2017 9:21 total on in AM [Moles/vo source lume] in data Serum or Plasma Creatinin 0.70 - mg/dL Normal No Jan 28 e 1.30 informati 2017 9:21 [Mass/vol on in AM ume] in source Serum or data Plasma Creatinin 50 - 200 ML/MIN Normal No Jan 28 e renal informati 2017 9:21 clearance on in AM source predicted data by Cockcroft -Gault formula Estimated >60 ML/MIN No REFERENCE Jan 28 informati RANGE: 2017 9:21 glomerula on in >60 AM r source ML/MIN/1. filtratio data 73 SQUARE n rate METERSIf (GF this patient is -A merican, then multiply theresult by 1.210. Globulin 1.3 - 3.2 gm/dL High No Jan 28 [Mass/vol informati 2016 9:21 ume] in on in AM Serum source data Glucose 74 - 106 mg/dL Normal No Jan 28 [Mass/vol informati 2016 9:21 ume] in on in AM Serum or source Plasma data Potassium 3.5 - 5.1 mmoL/L Normal No Jan 28 informati 2016 9:21 [Moles/vo on in AM lume] in source Serum or data Plasma Sodium 136 - 145 mmoL/L Normal No Jan 28 [Moles/vo informati 2016 9:21 lume] in on in AM Serum or source Plasma data Aspartate 15 - 37 U/L Low No Jan 28 informati 2016 9:21 aminotran on in AM sferase source [Enzymati data c activity/ volume] in Serum or Plasma Alanine 12 - 78 U/L Normal No Jan 28 aminotran informati 2016 9:21 sferase on in AM [Enzymati source c data activity/ volume] in Serum or Plasma Protein 6.4 - 8.2 gm/dL Normal No Jan 28 [Mass/vol informati 2016 9:21 ume] in on in AM Serum or source Plasma data Lipase [Enzymatic activity/volume] in Serum or Plasma Observa Value Referen Units Interpr Notes Date tion ce etation Range Lipase 73 - 393 U/L Normal No Jan 28 [Enzymati informati 2016 9:21 c on in AM activity/ source volume] data in Serum or Plasma CBC W Auto Differential panel in Blood Observa Value Referen Units Interpr Notes Date tion ce etation Range Basophils 0 - 0.2 K/MM3 Normal No Jan 28 informati 2016 9:21 [#/volume on in AM ] in source Blood by data Automated count Basophils 0.1 - 2.0 % Normal No Jan 28 informati 2017 9:21 leukocyte on in AM s in source Blood by data Automated count Eosinophi 0.0 - 0.4 K/mm3 Normal No Jan 28 ls informati 2016 9:21 [#/volume on in AM ] in source Blood by data Automated count Eosinophi 0.1 - % Normal No Jan 28 ls/100 12.0 informati 2016 9:21 leukocyte on in AM s in source Blood by data Automated count Granulocy 1.3 - 8.0 K/mm3 Normal No Jan 28 breanna informati 2016 9:21 [#/volume on in AM ] in source Blood by data Automated count Granulocy 37.0 - % Normal No Jan 28 breanna/100 80.0 informati 2016 9:21 leukocyte on in AM s in source Blood by data Automated count Hematocri 42.0 - % Normal No Jan 28 t [Volume 52.0 informati 2016 9:21 on in AM Fraction] source of Blood data Hemoglobi 14.1 - g/dL Normal No Jan 28 n 18.0 informati 2016 9:21 [Mass/vol on in AM ume] in source Blood data Lymphocyt 0.7 - 4.5 K/mm3 Normal No Jan 28 es informati 2016 9:21 [#/volume on in AM ] in source Unspecifi data ed specimen by Automated count Lymphocyt 10 - 50 % Normal Jan 28 es informati 2016 9:21 [#/volume on in AM ] in source Unspecifi data ed specimen by Automated count Erythrocy 27 - 31.2 pg High Jan 28 te mean informati 2016 9:21 corpuscul on in AM ar source hemoglobi data n [Entitic mass] Erythrocy 31.8 - g/dl Normal Jan 28 te mean 35.4 informati 2016 9:21 corpuscul on in AM ar source hemoglobi data n concentra tion [Mass/vol ume] by Automated count Erythrocy 82.2 - fl High Jan 28 te mean 97.8 informati 2016 9:21 corpuscul on in AM ar volume source [Entitic data volume] by Automated count Monocytes 0.1 - 1.0 K/mm3 Normal No Jan 28 informati 2016 9:21 [#/volume on in AM ] in source Blood by data Automated count Monocytes 1.7 - 9.3 % Normal No Nov 17 /100 informati 2017 9:21 leukocyte on in AM s in source Blood by data Automated count Platelet 7.4 - fl Normal No Jan 28 mean 10.4 informati 2016 9:21 volume on in AM [Entitic source volume] data in Blood by Automated count Platelets 142 - 424 K/mm3 Normal No Jan 28 informati 2016 9:21 [#/volume on in AM ] in source Blood data Erythrocy 4.6 - 6.2 M/mm3 Normal No Jan 28 breanna informati 2016 9:21 [#/volume on in AM ] in source Amniotic data fluid Erythrocy 11.5 - % Normal No Jan 28 te 17.5 informati 2016 9:21 distribut on in AM ion width source [Entitic data volume] by Automated count Leukocyte 4.8 - K/MM3 Normal No Jan 28 s 10.8 informati 2016 9:21 [#/volume on in AM ] in source Blood data Ferritin [Mass/volume] in Serum or Plasma Observa Value Referen Units Interpr Notes Date tion ce etation Range Ferritin 8 - 388 ng/mL High No Nov 22 [Mass/vol informati 2017 ume] in on [...] with a HCV Nucleic Acid Amplifica tiontest (607233). [facility] [place], [place] [id number] Senior Logistics Manager: Bryan Bhtati PhD, Phone: [phone] Hepatit Negativ Negativ No No No [...] Normal No Sep 1 e 1.30 informati 2016 [Mass/vol on in 10:07 AM ume] [...] - 5.1 mmoL/L Normal No Sep 1 inform2016 [Moles/vo on in 10:07 AM lume] in source Serum or data Plasma Sodium 136 - 145 mmoL/L Normal No Sep 1 [Moles/vo informati 2016 lume] in on in 10:07 AM Serum or source Plasma data Aspartate 15 - 37 U/L Low No Sep 1 informati 2016 aminotran on in 10:07 AM sferase source [Enzymati data c activity/ volume] in Serum or Plasma Alanine 12 - 78 U/L Normal No Sep 1 aminotran inform2016 sferase on in 10:07 AM [Enzymati source [...] INDICATIO Sep 1 Blood by informati N 2016 Coagulati on in 10:07 AM on assay source INR data RANGETHER APY FOR DVT, PE, ATRIAL FIB; 2.0 - 3.0PROPHY LAXIS FOR VTETHERAP Y FOR MECHANICA L HEART 2.5 - 3.5VALVE; PREVENTIO N OF SYSTEMICE MBOLISM SECONDARY TO AMI Prothromb 9.4 - SECONDS Normal No Sep 1 in time 11.8 inform2016 (PT) in on in 10:07 AM Platelet source poor data plasma by Coagulati on assay CBC W Auto Differential panel in Blood Observa Value Referen Units Interpr Notes Date tion ce etation Range Basophils 0 - 0.2 K/MM3 Normal No Sep 1 inform2016 [#/volume on in 10:07 AM ] in source Blood by data Automated count Basophils 0.1 - 2.0 % Normal No Sep 1 /100 inform2016 leukocyte on in 10:07 AM s [...] 8.0 K/mm3 Normal No Sep 1 breanna 2016 [#/volume on in 10:07 AM ] in source Blood by data Automated count Granulocy 37.0 - % Normal No Sep 1 breanna/100 80.0 inform2016 leukocyte on in 10:07 AM s in source Blood by data Automated count Hematocri 42.0 - % Normal No Sep 1 t [Volume 52.0 inform2016 on in 10:07 AM Fraction] source of Blood data Hemoglobi 14.1 - g/dL Normal No Sep 1 n 18.0 inform2016 [Mass/vol on in 10:07 AM ume] in source Blood data Lymphocyt 0.7 - 4.5 K/mm3 Normal No Sep 1 es inform2016 [#/volume on in 10:07 AM ] in source Unspecifi data ed specimen by Automated count Lymphocyt 10 - 50 % Normal No Sep 1 es inform2016 [#/volume on in 10:07 AM ] in source Unspecifi data ed specimen by Automated count Erythrocy 27 - 31.2 pg High No Sep 1 te mean inform 2017 corpuscul on in 10:07 AM ar source hemoglobi data n [Entitic mass] Erythrocy 31.8 - g/dl Normal No Sep 1 te mean 35.4 2016 corpuscul on in 10:07 AM ar source hemoglobi data n concentra tion [Mass/vol ume] by Automated count Erythrocy 82.2 - fl Normal No Sep 1 te mean 97.8 2016 corpuscul on in 10:07 AM ar volume source [Entitic data volume] by Automated count Monocytes 0.1 - 1.0 K/mm3 Normal No Sep 1 inform2016 [#/volume on in 10:07 AM ] in source Blood by data Automated count Monocytes 1.7 - 9.3 % Normal No Sep 1 /100 2017 leukocyte on in 10:07 AM s in source Blood by data Automated count Platelet 7.4 - fl Normal No Sep 1 mean 10.4 inform2016 volume on in 10:07 AM [Entitic source volume] data in Blood by Automated count Platelets 142 - 424 K/mm3 Normal No Sep 1 inform2016 [#/volume on in 10:07 AM ] in source Blood data Erythrocy 4.6 - 6.2 M/mm3 Normal No Sep 1 breanna inform2016 [#/volume on in 10:07 AM ] in source Amniotic data fluid Erythrocy 11.5 - % Normal No Sep 1 te 17.5 2016 distribut on in 10:07 AM ion width source [Entitic data volume] by Automated count Leukocyte 4.8 - K/MM3 Normal No Sep 1 s 10.8 inform2016 [#/volume on in 10:07 AM ] in source Blood data Comprehensive metabolic 2000 panel in Serum or Plasma Observa Value Referen Units Interpr Notes Date tion ce etation Range Albumin/G 1.1 - 1.8 No Normal No Oct 26 lobulin informati inform2016 [Mass on in on in 11:00 AM ratio] in source source Serum or data data Plasma Albumin 3.4 - 5.0 gm/dL Normal No Oct 26 [Mass/vol inform2016 ume] in on in 11:00 AM Serum or source Plasma data Alkaline 46 - 116 U/L Normal No Oct 26 phosphata 2016 se on in 11:00 AM [Enzymati source c data activity/ volume] in Serum or Plasma Bilirubin 0.2 - 1.0 mg/dL Normal No Oct 26 .total inform2016 [Mass/vol on in 11:00 AM ume] in source Serum or data Plasma Urea 7 - 18 mg/dL Normal No Oct 26 nitrogen informati 2017 [Mass/vol on in 11:00 AM ume] in source Serum or data Plasma Calcium 8.5 - mg/dL Normal No Oct 26 [Mass/vol 10.1 informati 2016 ume] in on in 11:00 AM Serum or source Plasma data Chloride 98 - 107 mmoL/L Normal No Oct 26 [Moles/vo informati 2017 lume] in on in 11:00 AM Serum or source Plasma data Carbon 21.0 - mmoL/L Normal No Oct 26 dioxide, 32.0 informati 2017 total on in 11:00 AM [Moles/vo source lume] in data Serum or Plasma Creatinin 0.70 - mg/dL Normal No Oct 26 e 1.30 informati 2016 [Mass/vol on in 11:00 AM ume] in source Serum or data Plasma Estimated >60 ML/MIN No REFERENCE Oct 26 informati RANGE: 2017 glomerula on in >60 11:00 AM r source ML/MIN/1. filtratio data 73 SQUARE n rate METERSIf (GF this patient is -A merican, then multiply theresult by 1.210. Globulin 1.3 - 3.2 gm/dL Normal No Oct 26 [Mass/vol informati 2017 ume] in on in 11:00 AM Serum source data Glucose 74 - 106 mg/dL Normal No Oct 26 [Mass/vol informati 2017 ume] in on in 11:00 AM Serum or source Plasma data Potassium 3.5 - 5.1 mmoL/L Normal No Oct 26 inform2016 [Moles/vo on in 11:00 AM lume] in source Serum or data Plasma Sodium 136 - 145 mmoL/L Normal No Oct 26 [Moles/vo informati 2017 lume] in on in 11:00 AM Serum or source Plasma data Aspartate 15 - 37 U/L Normal No Oct 26 informati 2016 aminotran on in 11:00 AM sferase source [Enzymati data c activity/ volume] in Serum or Plasma Alanine 12 - 78 U/L Normal No Oct 26 aminotran informati 2016 sferase on in 11:00 AM [Enzymati source c data activity/ volume] in Serum or Plasma Protein 6.4 - 8.2 gm/dL Normal No Oct 26 [Mass/vol informati 2017 ume] in on in 11:00 AM Serum or source Plasma data Thyroxine (T4) free [Mass/volume] in Serum or Plasma Observa Value Referen Units Interpr Notes tion ce etation Range Thyroxine 0.76 - ng/dL Normal No Oct 26 (T4) 1.46 2016 free on in 11:00 AM [Mass/vol [...] High No Oct 26 ol in HDL inform2016 on in 11:00 AM [Mass/vol source ume] [...] No Normal No Oct 26 ol in informati inform2016 VLDL on in on in 11:00 AM [Mass/vol source source ume] in data data Serum or Plasma Thyrotropin [Units/volume] in Serum or Plasma Observa Value Referen Units Interpr Notes tion ce etation Range Thyrotrop 0.358 - uIU/ml High No Oct 26 in 3.740 2016 [Units/vo on in 11:00 AM lume] in source Serum or data Plasma Hemoglobin A1c in Blood Observa Value Referen Units Interpr Notes Date tion ce etation Range Hemoglo 5.1 0.0 - % Normal < 6% Oct 26 bin A1c 7.0 NON-PRADEEP 2017 in BETIC 11:00 Blood LEVEL< AM 7% CONTROL LED [...] 2.0 % Normal No Oct 26 /100 inform2016 leukocyte on in 11:00 AM s in source Blood by data Automated count Eosinophi 0.0 - 0.4 K/mm3 Normal No Oct 26 ls informati 2016 [#/volume on in 11:00 AM ] in source Blood by data Automated count Eosinophi 0.1 - % Normal No Oct 26 ls/100 12.0 inform2016 leukocyte on in 11:00 AM s in source Blood by data Automated count Granulocy 1.3 - 8.0 K/mm3 Normal No Oct 26 breanna inform2016 [#/volume on in 11:00 AM ] in source Blood by data Automated count Granulocy 37.0 - % Normal No Oct 26 breanna/100 80.0 inform2016 leukocyte on in 11:00 AM s in source Blood by data Automated count Hematocri 42.0 - % Normal No Oct 26 t [Volume 52.0 ati 2016 on in 11:00 AM Fraction] source of Blood data Hemoglobi 14.1 - g/dL Normal Oct 26 n 18.0 inform2016 [Mass/vol on in 11:00 AM ume] in source Blood data Lymphocyt 0.7 - 4.5 K/mm3 Normal No Oct 26 es inform2016 [#/volume on in 11:00 AM ] in source Unspecifi data ed specimen by Automated count Lymphocyt 10 - 50 % Normal No Oct 26 es 2016 [#/volume on in 11:00 AM ] in source Unspecifi data ed specimen by Automated count Erythrocy 27 - 31.2 pg High No Oct 26 te mean 2016 corpuscul on in 11:00 AM ar source hemoglobi data n [Entitic mass] Erythrocy 31.8 - g/dl Normal Oct 26 te mean 35.4 2016 corpuscul on in 11:00 AM ar source hemoglobi data n concentra tion [Mass/vol ume] by Automated count Erythrocy 82.2 - fl High Oct 26 te mean 97.8 2016 corpuscul on in 11:00 AM ar volume source [Entitic data volume] by Automated count Monocytes 0.1 - 1.0 K/mm3 Normal No Oct 262016 [#/volume on in 11:00 AM ] in source Blood by data Automated count Monocytes 1.7 - 9.3 % Normal No Oct 15 /100 inform2016 leukocyte on in 11:00 AM s in source Blood by data Automated count Platelet 7.4 - fl High No Oct 26 mean 10.4 2016 volume on in 11:00 AM [Entitic source volume] data in Blood by Automated count Platelets 142 - 424 K/mm3 Normal No Oct 26 informati 2016 [#/volume on in 11:00 AM [...] 116 U/L Normal No Oct 20 phosphata ati 2016 se on in 10:35 AM [Enzymati [...] Normal No Oct 20 dioxide, 32.0 informati 2017 total on in 10:35 AM [Moles/vo source lume] in data Serum or Plasma Creatinin 0.70 - mg/dL Normal No Oct 20 e 1.30 informati 2017 [Mass/vol on in 10:35 AM ume] in source Serum or data Plasma Creatinin 50 - 200 ML/MIN Normal No Oct 20 e renal informati 2017 clearance on in 10:35 AM source predicted data by Cockcroft -Gault formula Estimated >60 ML/MIN No REFERENCE Oct 20 informati RANGE: 2017 glomerula on in >60 10:35 AM r source ML/MIN/1. filtratio data 73 SQUARE n rate METERSIf (GF this patient is -A merican, then multiply theresult by 1.210. Globulin 1.3 - 3.2 gm/dL High No Oct 20 [Mass/vol informati 2017 ume] in on in 10:35 AM Serum source data Glucose 74 - 106 mg/dL Normal No Oct 20 [Mass/vol informati 2017 ume] in on in 10:35 AM Serum or source Plasma data Potassium 3.5 - 5.1 mmoL/L Normal No Oct 20 inform2016 [Moles/vo on in 10:35 AM lume] in source Serum or data Plasma Sodium 136 - 145 mmoL/L Normal No Oct 20 [Moles/vo informati 2017 lume] in on in 10:35 AM Serum or source Plasma data Aspartate 15 - 37 U/L Low No Oct 20 informati 2016 aminotran on in 10:35 AM sferase source [Enzymati data c activity/ volume] in Serum or Plasma Alanine 12 - 78 U/L Normal No Oct 20 aminotran informati 2016 sferase on in 10:35 AM [Enzymati source c data activity/ volume] in Serum or Plasma Protein 6.4 - 8.2 gm/dL Normal No Oct 20 [Mass/vol informati 2017 ume] in on in 10:35 AM Serum or source Plasma data Drugs identified in Urine by Screen method Observa Value Referen Units Interpr Notes Date tion ce etation Range Positive urine drug screen samples are stored for 7 days. Contact the Lab if confirmation of positives is needed. Ampheta NEGATIV <1000 ng/mL No No Oct 20 mine E informa informa 2017 [Presen tion in tion in 10:35 ce] in source source AM Urine data data by Screen method Barbitura <200 ng/mL No No Oct 20 breanna informati informati 2016 [Mass/vol on in on in 10:35 AM ume] in source source Urine by data data Screen method Benzodiaz 200 ng/mL ng/mL No No Oct 20 epines informati informati 2016 [Mass/vol on in on [...] <25 ng/mL No No Oct 20 dine informati informati 2016 [Mass/vol on in on [...] 0.1 - 2.0 % Normal No Oct 20 /2016 leukocyte on in 10:35 AM s in source Blood by data Automated count Eosinophi 0.0 - 0.4 K/mm3 Normal No Oct 20 ls inform2016 [#/volume on in 10:35 AM ] in source Blood by data Automated count Eosinophi 0.1 - % Normal No Oct 20 ls/100 12.0 inform2016 leukocyte on in 10:35 AM s in source Blood by data Automated count Granulocy 1.3 - 8.0 K/mm3 Normal No Oct 20 breanna inform2016 [#/volume on in 10:35 AM ] in source Blood by data Automated count Granulocy 37.0 - % Normal No Oct 20 breanna/100 80.0 inform2016 leukocyte on in 10:35 AM s in source Blood by data Automated count Hematocri 42.0 - % Normal No Oct 20 t [Volume 52.0 ati 2016 on in 10:35 AM Fraction] source of Blood data Hemoglobi 14.1 - g/dL Normal No Oct 20 n 18.0 inform2016 [Mass/vol on in 10:35 AM ume] in source Blood data Lymphocyt 0.7 - 4.5 K/mm3 Normal No Oct 20 es 2016 [#/volume [...] 6.2 M/mm3 Low No Oct 20 breanna inform2016 [#/volume on in 10:35 AM ] [...] source source data data data data CHART [id number] No No No No Sep 18 NUMBER [...] tion that must be protect ed in [facility] with the [employer] ce Portabi lity [...] source source data data data data CHART [id number] No No No No Sep 18 NUMBER [...] that ssay must be protect ed in [facility] with the [employer] Portabi lity and Account ability Act. CHLAMYDIA [...] source source data data data data KIT 04-13-2 No No No No Sep 2 EXPIRAT [...] source source data data data data KIT --2 No No No No Sep 2 EXPIRAT [...] cation method Neisser Pending No No No \.br\Th Sep 2 ia informa informa informa is [...]
--- OUTSIDE RECORDS SUMMARY | 2017-01-28 13:10 | External Medical Summary Rpt ---
[...] with a HCV Nucleic Acid Amplifica tiontest ([id number]). [facility] [place], [place] [id number] Assembly Room Supervisor: Bryan Bhatti PhD, Phone: [phone] Hepatit Negativ Negativ No No No [...] source source data data data data CHART [id number] No No No No Sep 18 NUMBER [...] tion that must be protect ed in [facility] with the [employer] ce Portabi lity [...] source source data data data data CHART [id number] No No No No Sep 18 NUMBER [...] that ssay must be protect ed in [facility] with the [employer] Portabi lity and [...]
--- NOTE | 2017-01-28 15:55 | RADIOLOGY REPORT PS360 ---
CT ABD PELVIS W/ CONTRAST HISTORY: BILIARY COLICabd CT ABD PELVIS W/ CONTRAST HISTORY: BILIARY COLIC pain Patient Age: 42 years: Male Ordering Physician: Prerna Emerson MD TECHNIQUE: Helical CT scanning performed at of pelvis with with 75 cc Isovue 370 IV contrast utilized. Oral contrast also administered. COMPARISON :Previous November 25, 2016 CT abdomen pelvis FINDINGS Lung bases with no significant findings mild dependent atelectasis and scarring: Posterior lower lobes.. Heart normal size. Abdomen. : Liver. No focal lesions. The exercise is stopped very slightly more generous on the were on November study and upper normal prominence. Warrants correlation with serum bilirubin. Gallbladder. The sludge and likely noncalcified gravel-like material along the dependent portion gallbladder was better seen with ultrasound.. Pancreas. Unremarkable. Spleen unremarkable.. Adrenals unremarkable. Kidneys appear satisfactory. No calculi nor obstruction evident. No no lesions evident GI tract. Large amount of stool, prominent stool seen throughout the cecum and right colon as well as the transverse colon. Reflects moderate constipation in these regions. Low-lying cecum. Terminal ileum unremarkable. Appendix difficult to visualize but I believe normal containing gas. No evidence of appendicitis.. Minimal stool at the left colon and rectosigmoid No free fluid no free free air in abdomen pelvis. Urinary bladder is unremarkable. No pelvic nor significant retroperitoneal adenopathy. A few small scattered nodes mesentery. Osseous. No osseous lesions IMPRESSION: 1. Mild Distended appearance the gallbladder both CT as well as ultrasound.. It measures up to 10 cm . noncalcified sludge and debris evident at dependent gallbladder. 2.. Common duct appears normal but noting upper normal Central intrahepatic ducts at liver. Requires correlation serum bilirubin 3. copious, large amount stool throughout right colon & to lesser degree transverse colon. Reflects constipation
[2017-01-28] MEDS ORDERED: COLACE100 MG PO (16:16)
[2017-01-28] MEDS ORDERED: HYDROCODONE/APA1 TA8 PO (16:16)
[2017-01-28 16:47] VITALS: BP 135/84
== END 2017-01-28 16:48 | disposition home or self-care (01) ==
LOC: ER 12:54
DX: K80.20 Calculus of gallbladder without cholecystitis without obstruction (principal); F17.210 Nicotine dependence, cigarettes, uncomplicated; Z88.2 Allergy status to sulfonamides
CPT/HCPCS: Q9967